=== PATIENT | female | born 1940 | race Caucasian/White ===

== ENCOUNTER → 2016-12-08 | Outpatient (CLI) | payer OTHER ==
[~2016-12-08] MED LIST: ASPIRIN325 PO; COQ10; DITROPAN XL10 M1; EYE VITAMIN-MI1 EACH; FISH OIL 1,001000 M2 PO; JOINT SUPPORT1 EACH; KEFLEX500 MG PO; LEVOTHYROXINE 0.1 MG PO; LIPITOR 20 MG T20 M1 PO; METFORMIN HCL500 MG; MULTIVITAMIN; NORVASC5 MG PO
== END ==
LOC: RAD 01:30
DX: Z12.31 Encounter for screening mammogram for malignant neoplasm of breast (principal)

== ENCOUNTER → 2017-12-13 | Outpatient (CLI) | payer OTHER | LOC: RAD 00:39 | DX: Z12.31 Encounter for screening mammogram for malignant neoplasm of breast (principal) ==

== ENCOUNTER → 2018-12-25 | Outpatient (CLI) | payer OTHER | LOC: RAD 01:56 | DX: Z12.31 Encounter for screening mammogram for malignant neoplasm of breast (principal) ==

== ENCOUNTER 2019-10-25 20:40 | Emergency (ER) | payer OTHER ==
[~2019-10-25] VITALS: Ht 154.9 cm; Wt 93.0 kg
[2019-10-25] MEDS ORDERED: LISINOPRIL2.5 MG PO (20:54)
[2019-10-25] MEDS ORDERED: METFORMIN HCL500 MG PO (21:02)
[2019-10-25 21:46] LABS: ABSOLUTE NEUTROPHILS 10.6 thou/uL (1.4-8.2); BASOPHILS 0.5 % (0.0-2.0); EOSINOPHILS 0.6 % (0.0-3.0); HEMATOCRIT 38.9 % (37.0-47.0); HEMOGLOBIN 12.9 gm/dL (12.0-15.0); LYMPHOCYTES 35.5 % (24.0-44.0); MCH 31.5 pg (26.0-34.0); MCV 95.4 fL (80.0-100.0); MONOCYTES 4.7 % (1.0-8.0); PLATELET COUNT 262 thou/uL (150-400); POLYS 58.7 % (36.0-66.0); RBC 4.08 mil/uL (4.20-5.00); WBC 18.1 thou/uL (4.0-11.0)
[2019-10-25 21:50] LABS: ANION GAP 12 mmol/L (7-16); BUN 19 mg/dL (7-18); CHLORIDE 101 mmol/L (98-107); CO2 27 mmol/L (21-32); GLUCOSE 248 mg/dL (74-106); POTASSIUM 3.4 mmol/L (3.5-5.1); SODIUM 140 mmol/L (136-145)
[2019-10-25 22:00] LABS: ALBUMIN 3.5 g/dL (3.4-5.0); MAGNESIUM 1.8 mg/dL (1.8-2.4); SGOT 16 U/L (15-37); SGPT 21 U/L (30-65); TOTAL BILIRUBIN 0.4 mg/dL (0.2-1.0); TOTAL PROTEIN 7.5 g/dL (6.4-8.2); TROPONIN-I <0.06 ng/mL (<0.06)
[2019-10-25] MEDS ORDERED: VALIUM2 MG PO (22:31)
[2019-10-25] MEDS ORDERED: MECLIZINE HCL25 M1 PO (22:31)
[2019-10-25 22:59] VITALS: BP 147/57
--- NOTE | 2019-10-28 08:36 | EKG ---
[facility] [place] [address] ELECTROCARDIOGRAM REPORT Name: OSIEL GU Room #: DEP [facility] [id number] Admission: 10/25/19 Attend Phys: Discharge: 10/25/19 Date of : 38 Report #: [id number] THIS REPORT FOR: cc: Reno Washington MD, Neal A. MD Lundgren,Jadon Chang MD [facility] ~ THIS REPORT FOR: //name// [facility] ED Test Date: 2019-10-25 Test Time: 20:46:07 Pat Name: OSIEL GU Department: Room: Gender: F Rn [facility] 1940 Requested By: Panfilo Barragan Order Number: [id number] MD: Jadon Eugene Measurements Intervals [place] Rate: 93 P: 44 RI: 174 QRS: -26 QRSD: 92 T: 13 QT: 367 QTc: 457 Interpretive Statements Sinus rhythm Abnormal R-wave progression, early transition Inferior infarct, old Baseline wander in lead(s) V2 Compared to ECG 08/05/2015 22:04:24 No significant changes Electronically Signed On 10-28-2019 8:31:14 CDT by Jadon Eugene [email or web address] <ELECTRONICALLY SIGNED> By: Jadon Eugene MD, FAC 10/28/1931 45 45 Jadon Eugene MD, FAC /EPI
== END 2019-10-25 22:59 | disposition home or self-care (01) ==
LOC: ER 20:40
PROVIDERS: Emergency Medicine
DX: H81.10 Benign paroxysmal vertigo, unspecified ear (principal); R11.2 Nausea with vomiting, unspecified; I10 Essential (primary) hypertension; E66.9 Obesity, unspecified; Z88.2 Allergy status to sulfonamides; Z79.82 Long term (current) use of aspirin; Z79.899 Other long term (current) drug therapy; Z98.51 Tubal ligation status; Z86.73 Personal history of transient ischemic attack (TIA), and cerebral infarction without residual deficits; Z90.89 Acquired absence of other organs

== ENCOUNTER → 2020-01-16 | Outpatient (CLI) | payer OTHER ==
[~2020-01-16] MED LIST changes: +LISINOPRIL2.5 MG PO; +MECLIZINE HCL25 M1 PO; +METFORMIN HCL500 MG PO; +VALIUM2 MG PO
== END ==
LOC: RAD 10:27
PROVIDERS: ATTEND Family Medicine
DX: Z12.31 Encounter for screening mammogram for malignant neoplasm of breast (principal)

== ENCOUNTER → 2020-02-11 | Outpatient (CLI) | payer OTHER | LOC: SJCVC 13:23 | PROVIDERS: ATTEND Internal Medicine Cardiovascular Disease | DX: R94.31 Abnormal electrocardiogram [ECG] [EKG] (principal); I10 Essential (primary) hypertension; E78.00 Pure hypercholesterolemia, unspecified; R60.9 Edema, unspecified; E11.9 Type 2 diabetes mellitus without complications; Z79.82 Long term (current) use of aspirin; Z79.899 Other long term (current) drug therapy; Z87.891 Personal history of nicotine dependence ==

== ENCOUNTER → 2020-10-14 | Outpatient (CLI) | payer OTHER | LOC: CAT 13:03 | PROVIDERS: ATTEND Internal Medicine Cardiovascular Disease | DX: Z13.6 Encounter for screening for cardiovascular disorders (principal); E78.00 Pure hypercholesterolemia, unspecified; I25.10 Atherosclerotic heart disease of native coronary artery without angina pectoris ==

== ENCOUNTER → 2020-11-11 | Outpatient (CLI) | payer OTHER | LOC: SJCVCIMAG 07:45 | PROVIDERS: ATTEND Internal Medicine Cardiovascular Disease | DX: I25.10 Atherosclerotic heart disease of native coronary artery without angina pectoris (principal); I10 Essential (primary) hypertension; E78.00 Pure hypercholesterolemia, unspecified; R60.9 Edema, unspecified; K21.9 Gastro-esophageal reflux disease without esophagitis; E11.9 Type 2 diabetes mellitus without complications; Z88.2 Allergy status to sulfonamides; Z88.8 Allergy status to other drugs, medicaments and biological substances; Z79.82 Long term (current) use of aspirin; Z79.899 Other long term (current) drug therapy; Z87.891 Personal history of nicotine dependence; Z72.89 Other problems related to lifestyle; Z86.73 Personal history of transient ischemic attack (TIA), and cerebral infarction without residual deficits ==

== ENCOUNTER → 2021-01-15 | Outpatient (CLI) | payer OTHER | END | disposition home or self-care (01) | LOC: BC 10:17 | PROVIDERS: ATTEND Family Medicine | DX: Z12.31 Encounter for screening mammogram for malignant neoplasm of breast (principal) ==